=== PATIENT | female | born 1930 | race Hispanic/Latino ===

== ENCOUNTER 2018-01-17 11:17 | Inpatient (IN) | payer MEDICARE ==
--- NOTE | 2018-01-17 12:46 | ED PDOC ---
Arrival/HPI - General Chief Complaint: Trauma Time Seen by Provider: 01/17/18 12:11 Historian: Patient - History of Present Illness Narrative History of Present Illness (Text): 01/17/18 12:24 A 87 year old female, whose past medical history includes Parkinson's disease ( with cognitive function), and breast and ovarian CA (bilateral mastectomy), presents to the emergency department complaining of pain s/p falling 3 times for the past week. Patient reports .1st fall was witnessed and slipped due to festinating gait. Complaining of left shoulder pain, left humerus pain, and bruising to sternal area; however no head trauma or LOC. 2nd fall, patient was unable to grab railing to stop fall. 3rd fall was unwitnessed and continues to deny head trauma or inability to ambulate. PMD: Dr. Gfity Helm Past Medical History - Provider Review Nursing Documentation Reviewed: Yes - Neurological Hx Parkinson's Disease: Yes - Musculoskeletal/Rheumatological Hx Falls: No - Genitourinary/Gynecological Hx Ovarian Cancer: Yes Other/Comment: Breast CA. "oral" CA - Psychiatric Hx Depression: No Hx Emotional Abuse: No Hx Physical Abuse: No Hx Substance Use: No - Surgical History Hx Mastectomy: Yes (BILAT) - Anesthesia Hx Anesthesia: Yes Hx Anesthesia Reactions: No Hx Malignant Hyperthermia: No - Suicidal Assessment Feels Threatened In Home Enviroment: No Family/Social History - Physician Review Nursing Documentation Reviewed: Yes Family/Social History: No Known Family HX Smoking Status: Never Smoked Hx Alcohol Use: No Hx Substance Use: No Allergies/Home Meds Allergies/Adverse Reactions: Allergies No Known Allergies Allergy (Verified 01/23/13 13:15) Home Medications: Home Meds Medication Instructions Recorded Confirmed Carbidopa/Levodopa 50/200 CR 1 tab PO BID 01/17/18 01/17/18 [Sinemet CR] Entacapone [Comtan] 1 tab PO BID 01/17/18 01/17/18 Escitalopram [Lexapro] 10 mg PO DAILY 01/17/18 01/17/18 rOPINIRole [Requip] 2 mg pe PO DAILY 01/17/18 01/17/18 Review of Systems - Physician Review All systems were reviewed & negative as marked: Yes - Review of Systems Constitutional: absent: Other (denies any head trauma or inability to ambulate) Musculoskeletal: Other (left shoulder pain, left humerus pain, bruising to sternal area (s/p falls x 3)) Neurological: absent: Other (no LOC) Physical Exam Vital Signs Reviewed: Yes Vital Signs Temp Pulse Resp BP Pulse Ox 01/17/18 14:40 84 16 187/74 H 98 01/17/18 11:33 98.1 F 80 16 145/78 100 Temperature: Afebrile Blood Pressure: Normal Pulse: Regular Respiratory Rate: Tachypneic Appearance: Positive for: Well-Appearing Pain Distress: None Mental Status: Positive for: Alert and Oriented X 3 - Systems Exam Head: Present: Normocephalic Mouth: Present: Dry Respiratory/Chest: Present: Clear to Auscultation, Good Air Exchange, Other ( echomotic nicholas from past bilateral mastectomy). No: Respiratory Distress, Accessory Muscle Use Cardiovascular: Present: Regular Rate and Rhythm, Normal S1, S2. No: Murmurs Abdomen: No: Tenderness, Distention, Peritoneal Signs Upper Extremity: Present: Normal ROM (full ROM to elbow, however limited ROM to shoulder), Tenderness (left shoulder tendereness anterior laterally; humerus echymotic tenderness) Lower Extremity: Present: Normal Inspection. No: Edema Skin: Present: Warm, Dry, Normal Color. No: Rashes Psychiatric: Present: Alert, Oriented x 3, Normal Insight, Normal Concentration Medical Decision Making ED Course and Treatment: 01/17/18 12:28 Impression: 87 year old female with pain s/p falls x 3. Physical exam shows patient is slightly tachypneic; dry mucous membranes, has echomotic nicholas from past bilateral mastectomy; left shoulder tenderness anterior laterally; humerus echymotic tenderness; full ROM to elbow, however limited ROM to shoulder. Plan: -- EKG -- Head CT -- Chest CT -- left humerus X-Ray -- Right Knee X-Ray -- Pelvis X-Ray -- Left Shoulder X-Ray -- Labs -- Urinalysis -- Blood Cutlure -- Urine Culture -- Tylenol -- Venous Blood Gas -- Reassess and disposition Progress Notes: 01/17/2018 13:[address] IMPRESSION: No acute findings. Dictator: Juan Wills MD 01/17/2018 13:[address] IMPRESSION: No acute findings. No evidence of rib fracture or pneumothorax. Dictator: Juan Wills MD 01/17/2018 14:07 Knee X-Ray IMPRESSION: Normal radiographs of the right knee. Dictator: Juan Wills MD 01/17/2018 14:09 Pelvis X-Ray IMPRESSION: Unremarkable radiographs of pelvis. Dictator: Juan Wills MD 01/17/2018 14:11 Humerus X-Ray IMPRESSION: Minimally displaced fractire of the humeral neck. Dictator: Juan Wills MD 01/17/2018 14:12 Shoulder X-Ray IMPRESSION: Minimally displaced impacted fracture of the humeral neck. Dictator: Juan Wills MD 01/17/18 16:29 case discussed with pmd about presentation and lab resultation. consults being called as of this note's writing. Pt will need admiossno fro anemia w/u, left humeral fracture , repeated syncopes - Lab Interpretations Lab Results: 01/17/18 12:50 01/17/18 12:50 Lab Results 01/17/18 15:50: Blood Type Pending, Antibody Screen Pending, BBK History Checked No verified bt 01/17/18 14:20: Urine Color Dark yellow, Urine Appearance Clear, Urine pH 6.5, Ur Specific [place] 1.015, Urine Protein Negative, Urine Glucose (UA) Negative, Urine Ketones Negative, Urine Blood Negative, Urine Nitrate Negative, Urine Bilirubin Negative, Urine Urobilinogen 1.0 H, Ur Leukocyte Esterase Negative 01/17/18 12:50: Blood Type Cancelled, Antibody Screen Cancelled, BBK History Checked Cancelled 01/17/18 12:50: Sodium 146, Chloride 108 H, Potassium 3.9, Carbon Dioxide 26, Anion Gap 16, BUN 21, Creatinine 0.8, Est GFR ( Amer) > 60, Est GFR (Non- Af Amer) > 60, Random Glucose 84, Calcium 9.1, Total Bilirubin 0.9, AST 12 L, ALT 9, Alkaline Phosphatase 116, Lactate Dehydrogenase 624, Total Creatine Kinase 47, Troponin I < 0.01, Total Protein 6.3, Albumin 3.8, Globulin 2.5, Albumin/Globulin Ratio 1.5 01/17/18 12:50: pO2 44, VBG pH 7.39, VBG pCO2 47.0, VBG HCO3 28.5 H, VBG Total CO2 29.9 H, VBG O2 Sat (Calc) 83.0 H, VBG Base Excess 2.8 H, VBG Potassium 4.6, Sodium 142.0, Chloride 112.0 H, Glucose 84, Lactate 2.0, FiO2 21.0, Venous Blood Potassium 4.6 01/17/18 12:50: PT 11.4, INR 0.99, APTT 28.6 01/17/18 12:50: WBC 4.7, RBC 3.53, Hgb 9.6 L, Hct 29.7 L, MCV 84.1, MCH 27.2, MCHC 32.3, RDW 15.4 H, Plt Count 273, MPV 8.9, Gran % 61.8, Lymph % (Auto) 25.4 , [place] % (Auto) 10.0 H, Eos % (Auto) 2.4, Baso % (Auto) 0.4, Gran # 2.89, Lymph # (Auto) 1.2, [place] # (Auto) 0.5, Eos # (Auto) 0.1, Baso # (Auto) 0.02 I have reviewed the lab results: Yes - RAD Interpretation Radiology Orders: 01/17/18 12:14 CHEST W/O CONTRAST [CT] Stat 01/17/18 12:16 HUMERUS LEFT [RAD] Stat SHOULDER LEFT [RAD] Stat 01/17/18 12:17 HEAD W/O CONTRAST [CT] Stat PELVIS ONE VIEW [RAD] Stat 01/17/18 12:18 KNEE RIGHT 2 VIEWS (AP & LAT) [RAD] Stat - Medication Orders Current Medication Orders: Discontinued Medications Acetaminophen (Tylenol 325mg Tab) 650 mg PO STAT STA Stop: 01/17/18 12:15 Last Admin: 01/17/18 14:37 Dose: 650 mg MAR Pain/Vitals Document 01/17/18 14:37 EQ (Rec: 01/17/18 14:37 EQ [id number]) Pain Reassessment Is This A Pain ReAssessment? No Sleep Is patient sleeping during reassessment? No Presence of Pain Presence of Pain Yes Pain Scale Used Pain Scale Used Numeric - Scribe Statement The provider has reviewed the documentation as recorded by the Sharron Pierre Provider Scribe Attestation: All medical record entries made by the Scribe were at my direction and personally dictated by me. I have reviewed the chart and agree that the record accurately reflects my personal performance of the history, physical exam, medical decision making, and the department course for this patient. I have also personally directed, reviewed, and agree with the discharge instructions and disposition. Disposition/Present on Arrival - Present on Arrival Any Indicators Present on Arrival: No History of DVT/PE: No History of Uncontrolled Diabetes: No Urinary Catheter: No History of Decub. Ulcer: No History Surgical Site Infection Following: None - Disposition Have Diagnosis and Disposition been Completed?: Yes Diagnosis: Anemia, Humeral surgical neck fracture, Syncope and collapse Disposition: HOSPITALIZED Disposition Time: 16:31 Patient Plan: Admission, Telemetry Condition: GUARDED Discharge Instructions (ExitCare): Syncope (ED) Referrals: Gifty Helm MD [Primary Care Provider] - Follow up with primary Forms: Jeeran (Italian)
[2018-01-17 13:08] LABS: BASO # 0.02 K/mm3 (0.0-2.0); BASO % 0.4 % (0.0-3.0); EOS # 0.1 (0.0-0.7); EOS % 2.4 % (1.5-5.0); GRAN # 2.89 (1.4-6.5); GRAN % 61.8 % (50.0-68.0); HEMOGLOBIN 9.6 g/dL (12.0-16.0); LYMPH # 1.2 (1.2-3.4); LYMPH % 25.4 % (22.0-35.0); MEAN CELL VOLUME 84.1 fl (80.0-105.0); MEAN CORPUSCULAR HEMOGLOBIN 27.2 pg (25.0-35.0); MEAN CORPUSCULAR HGB CONC 32.3 g/dl (31.0-37.0); MEAN PLATELET VOLUME 8.9 fl (7.0-11.0); MONO # 0.5 (0.1-0.6); RBC 3.53 10^6/uL (3.5-6.1); RED CELL DISTRIBUTION WIDTH 15.4 % (11.5-14.5); VENOUS BLOOD GAS BASE EXCESS 2.8 mmol/L (0.0-2.0); VENOUS BLOOD GAS PO2 44 mm/Hg (30-55); VENOUS BLOOD PH 7.39 (7.32-7.43); WHITE BLOOD COUNT 4.7 10^3/ul (4.5-11.0)
[2018-01-17 13:18] LABS: INR 0.99 (0.93-1.08); PARTIAL THROMBOPLASTIN TIME 28.6 Seconds (25.1-36.5); PROTHROMBIN TIME 11.4 SECONDS (9.4-12.5)
[2018-01-17 13:23] LABS: ALB/GLOB RATIO 1.5 (1.1-1.8); ALBUMIN 3.8 g/dL (3.0-4.8); ALT/SGPT 9 U/L (7-56); AST/SGOT 12 U/L (14-36); BLOOD UREA NITROGEN 21 mg/dL (7-21); CALCIUM 9.1 mg/dL (8.4-10.5); GFR AFRICAN-AMERICAN > 60; GFR NON-AFRICAN AMERICAN > 60
[2018-01-17 13:34] LABS: TROPONIN I < 0.01 ng/mL
--- NOTE | 2018-01-17 13:41 | CT ---
PROCEDURE: CT HEAD WITHOUT CONTRAST. HISTORY: fall COMPARISON: 01/25/2013 TECHNIQUE: Axial computed tomography images were obtained through the head/brain without intravenous contrast. Radiation dose: Total exam DLP = 979 mGy-cm. This CT exam was performed using one or more of the following dose reduction techniques: Automated exposure control, adjustment of the mA and/or kV according to patient size, and/or use of iterative reconstruction technique. FINDINGS: HEMORRHAGE: No intracranial hemorrhage. BRAIN: No mass effect or edema. No atrophy or chronic microvascular ischemic changes. VENTRICLES: Unremarkable. No hydrocephalus. CALVARIUM: Unremarkable. PARANASAL SINUSES: Unremarkable as visualized. No significant inflammatory changes. MASTOID AIR CELLS: Unremarkable as visualized. No inflammatory changes. OTHER FINDINGS: None. IMPRESSION: No acute findings
--- NOTE | 2018-01-17 13:46 | CT ---
PROCEDURE: CT Chest without contrast HISTORY: fall COMPARISON: None. TECHNIQUE: Contiguous axial images were obtained through the chest without intravenous contrast enhancement. Sagittal and coronal reconstructions were performed. Radiation dose (DLP): 552 mGy-cm. This CT exam was performed using one or more of the following dose reduction techniques: Automated exposure control, adjustment of the mA and/or kV according to patient size, and/or use of iterative reconstruction technique. FINDINGS: LUNGS: Clear lungs. Visualized airway clear. MEDIASTINUM: Unremarkable thoracic aorta. No aneurysm. Normal sized heart. Main pulmonary artery unremarkable. No vascular congestion. No lymphadenopathy. PLEURA: No pleural fluid. No pneumothorax. BONES: No fracture. No destructive lesion. UPPER ABDOMEN: Grossly unremarkable. OTHER FINDINGS: None. IMPRESSION: No acute findings. No evidence of rib fracture or pneumothorax
--- NOTE | 2018-01-17 14:09 | RAD ---
PROCEDURE: Right Knee Radiographs. HISTORY: fall COMPARISON: None. FINDINGS: BONES: Normal. No fracture. JOINTS: Normal. No osteoarthritis. JOINT EFFUSION: None. OTHER FINDINGS: None. IMPRESSION: Normal radiographs of the right knee.
--- NOTE | 2018-01-17 14:11 | RAD ---
PROCEDURE: Radiographs of the pelvis. HISTORY: fall COMPARISON: None. FINDINGS: BONES: Pelvic Bones: Unremarkable. Hips: Grossly unremarkable. JOINTS: Sacroiliac Joints: Unremarkable. Pubic Symphysis: Unremarkable. OTHER FINDINGS: None. IMPRESSION: Unremarkable radiographs of the pelvis.
--- NOTE | 2018-01-17 14:12 | RAD ---
PROCEDURE: Radiographs of the left humerus. HISTORY: fall COMPARISON: None. FINDINGS: BONES: There is a minimally displaced fracture of the humeral neck. SOFT TISSUES: Normal. OTHER FINDINGS: None. IMPRESSION: Minimally displaced fracture of the humeral neck
--- NOTE | 2018-01-17 14:14 | RAD ---
PROCEDURE: Radiographs of the Left Shoulder HISTORY: fall COMPARISON: No prior. FINDINGS: BONES: Minimally displaced impacted fracture of the humeral neck JOINTS: Normal. Glenohumeral and acromioclavicular joints preserved. No osteoarthritis. SOFT TISSUES: Normal. OTHER FINDINGS: None. IMPRESSION: Minimally displaced impacted fracture of the humeral neck
[2018-01-17 14:42] LABS: PH,URINE 6.5 (4.7-8.0); URINE BILIRUBIN NEGATIVE (NEGATIVE); URINE BLOOD NEGATIVE (NEGATIVE); URINE GLUCOSE (UA) NEGATIVE (NEGATIVE); URINE LEUKOCYTE ESTERASE NEGATIVE Leu/uL (NEGATIVE); URINE PROTEIN NEGATIVE mg/dL (<30 mg/dL)
[2018-01-17 14:47] LABS: URINE APPEARANCE CLEAR (CLEAR); URINE COLOR DARK YELLOW (YELLOW)
[2018-01-17 16:33] LABS: VENOUS BLOOD GAS BASE EXCESS 2.7 mmol/L (0.0-2.0); VENOUS BLOOD GAS PO2 89 mm/Hg (30-55); VENOUS BLOOD PH 7.41 (7.32-7.43)
--- NOTE | 2018-01-17 20:10 | CARD ---
APPROVED REPORT EKG Measurement Heart [id number] MN [id number] [id number] <Conclusion> Normal sinus rhythm Inferior infarct, age undetermined Possible Anterior infarct, age undetermined Abnormal ECG
--- NOTE | 2018-01-17 22:45 | CP.PCM.PN ---
Subjective - Date & Time of Evaluation Date of Evaluation: 01/17/18 Time of Evaluation: 22:44 - Subjective Subjective: Patient was seen at bedside. She complained of pain in left shoulder and upper arm. Has no other complaints. Denies chest pain,sob, nausea, sweating ,palpitations. Medical record was reviewed. This 87 year old woman was admitted with left shoulder pain after she fell at home, left humeral fracture. Has PMH of depression, dementia, rectal bleeding, hystrectomy, breast surgery. Objective - Vital Signs/Intake and Output Vital Signs (last 24 hours): Temp Pulse Resp BP Pulse Ox 98.1 F 79 18 152/70 H 98 01/17/18 11:33 01/17/18 17:52 01/17/18 17:52 01/17/18 17:52 01/17/18 17:52 - Medications Medications: Current Medications Carbidopa/Levodopa (Sinemet Cr) 1 tab PO BID AFSANEH Escitalopram Oxalate (Lexapro) 10 mg PO DAILY AFSANEH Non-Formulary Medication (Entacapone [Comtan]) 1 tab PO BID AFSANEH Ropinirole HCl (Requip) 2 mg PO DAILY AFSANEH - Labs Labs: PT 11.4 SECONDS (9.4-12.5) 01/17/18 12:50 INR 0.99 (0.93-1.08) 01/17/18 12:50 APTT 28.6 Seconds (25.1-36.5) 01/17/18 12:50 - Constitutional Appears: Well, No Acute Distress - Head Exam Head Exam: ATRAUMATIC, NORMAL INSPECTION, NORMOCEPHALIC - Eye Exam Eye Exam: Normal appearance - ENT Exam ENT Exam: Normal External Ear Exam - Neck Exam Neck Exam: Normal Inspection - Respiratory Exam Respiratory Exam: NORMAL BREATHING PATTERN - Cardiovascular Exam Cardiovascular Exam: absent: JVD - GI/Abdominal Exam GI & Abdominal Exam: absent: Distended - Rectal Exam Rectal Exam: Deferred - Extremities Exam Additional comments: Left shoulder ROM diminished. Tenderness + - Back Exam Back Exam: NORMAL INSPECTION - Neurological Exam Neurological Exam: Alert, Oriented x3 - Psychiatric Exam Psychiatric exam: Normal Affect, Normal Mood - Skin Skin Exam: Normal Color Assessment and Plan - Assessment and Plan (Free Text) Assessment: Left shoulder/upper arm pain. Left humeral neck fracture. Dementia. Depression. Anemia.
[2018-01-17 23:10] VITALS: BMI 24.5
[2018-01-17] MEDS ORDERED: Pneumococcal 23-Valent Vaccine IM ONE (23:10)
[2018-01-18 07:52] LABS: BASO # 0.01 K/mm3 (0.0-2.0); BASO % 0.3 % (0.0-3.0); EOS # 0.2 (0.0-0.7); GRAN # 2.34 (1.4-6.5); GRAN % 61.6 % (50.0-68.0); HEMOGLOBIN 9.5 g/dL (12.0-16.0); LYMPH % 25.5 % (22.0-35.0); MEAN CELL VOLUME 84.1 fl (80.0-105.0); MEAN CORPUSCULAR HEMOGLOBIN 26.5 pg (25.0-35.0); MEAN CORPUSCULAR HGB CONC 31.6 g/dl (31.0-37.0); MEAN PLATELET VOLUME 8.7 fl (7.0-11.0); MONO # 0.3 (0.1-0.6); MONO % 7.6 % (1.0-6.0); RBC 3.58 10^6/uL (3.5-6.1); RED CELL DISTRIBUTION WIDTH 15.3 % (11.5-14.5); WHITE BLOOD COUNT 3.8 10^3/ul (4.5-11.0)
[2018-01-18 07:57] LABS: BLOOD UREA NITROGEN 19 mg/dL (7-21); CALCIUM 8.8 mg/dL (8.4-10.5); GFR AFRICAN-AMERICAN > 60; GFR NON-AFRICAN AMERICAN 59
--- NOTE | 2018-01-18 08:18 | HP ---
HISTORY OF PRESENT ILLNESS: An 87-year-old female who was brought to [facility] by her daughter with a history of several falls at home. The patient had sustained some trauma to the left shoulder with a large ecchymotic area and she was referred in to the emergency room. PAST MEDICAL HISTORY: The patient has a past medical history of rectal bleeding, dementia with parkinsonian components, breast surgery history, hysterectomy and depression. SOCIAL HISTORY: She has a social history of nonsmoker, nondrinker, nondrug user. ALLERGIES: THERE ARE NO KNOWN ALLERGIES. HOME MEDICATIONS: Consists of Comtan 1 tab b.i.d., carbidopa and levodopa 52,000 b.i.d., Requip 2 mg daily and Lexapro 10 mg daily. REVIEW OF SYSTEMS: Ten systems are reviewed. Pertinent findings as stated. VITAL SIGNS: Show a temp of 98, the blood pressure is 145/78, respiratory rate is 16, oxygen sat is 98% on room air, LABORATORY DATA: Shows the urine was clear. Chemistry shows electrolytes 130 and 146, potassium 4.9, chloride 108. The BUN is 21, the creatinine is 0.8, AST is 12. Troponin is less than 0.01. Albumin is 3.8. Glucose is 84. Her coags, her PT is 11.4 with an INR of 0.999, the PTT is 28.6. CBC shows a white count of 4.7, RBC 3.5, hemoglobin 9.6, hematocrit 29.7, platelet count 273. The patient is reported to have had the CAT scan of the head, which showed no acute findings as did a CT of the chest. She has an impacted fracture of the left humerus with a large ecchymotic area. X-rays of the knee and pelvic area are reported as showing no acute findings. She had an EKG, which is reported as showing a sinus rhythm, infarct age undetermined, possible anterior infarct age undetermined. 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 It has been advised that the patient be admitted for monitoring with neurological and orthopedic evaluation. Also, because of the risk of fall and her underlying cognitive disorder, I requested and made the patient to be on a one-to-one. We will get a Neurology and Orthopedic consult as well as a Gastroenterology consult and follow up her labs. Gifty Helm MD
[2018-01-18] MEDS ORDERED: Potassium Chloride 20 mEq ER Tab PO ONE (08:55)
--- NOTE | 2018-01-18 09:26 | PN ---
DATE: 01/18/2018 SUBJECTIVE: The patient is comfortable this morning, was seen by Dr. Eaton. PHYSICAL EXAMINATION: VITAL SIGNS: She has a temp of 98, her blood pressure is 134/64, respiratory rate is 20, percent saturation on room air is 97%, pulse is 74. Monitor is reporting a sinus rhythm. GENERAL: She is alert and oriented x2. LUNGS: Clear. HEART: S1 and S2 rhythm. ABDOMEN: Soft with positive bowel sounds. ASSESSMENT AND PLAN: There is a large area of ecchymosis over the left shoulder where the patient has sustained a fall. Orthopedics has been in to see the patient and has requested a CT of that area. During the evening hours, she was seen by the house physician for pain medication. She is comfortable this morning. Laboratory data shows a sodium of 145, potassium 3.3, chloride 108, BUN of 19, creatinine is 0.9. CBC shows a WBC of 3.8, RBC of 3.58, hemoglobin 9.5, hematocrit 30.1, platelet count is 265. Consult has been requested for Physical Therapy and Neurology. She is a patient with cognitive behavior disorder and parkinsonian symptomatology, on Parkinson's medications. Her medications have been clarified after discussion with the family and adjustments are currently being made. We will check her iron studies, replete her potassium, check her magnesium levels. Her stool guaiac in the emergency room was reported as being negative. Gifty Helm MD
[2018-01-18 09:34] LABS: IRON 40 ug/dL (45-180)
[2018-01-18 09:44] LABS: % IRON SATURATION 13 % (20-55); TOTAL IRON BINDING CAPACITY 311 ug/dL (265-497)
--- NOTE | 2018-01-18 10:06 | CT ---
PROCEDURE: CT of the left shoulder without contrast HISTORY: ltshoulder pain COMPARISON: Plain films 01/17/2018 TECHNIQUE: Radiation dose: Total exam DLP = 389 mGy-cm. This CT exam was performed using one or more of the following dose reduction techniques: Automated exposure control, adjustment of the mA and/or kV according to patient size, and/or use of iterative reconstruction technique. FINDINGS: As noted on the plain films there is a minimally displaced impacted fracture of the left humeral neck. The articular surface of the humeral head is intact. The bony glenoid is intact. The clavicle and the acromioclavicular joint are unremarkable. There is an old fracture deformity of the scapula which has a wavy contour. There is no evidence of acute fracture IMPRESSION: Minimally displaced impacted fracture of the left humeral neck
[2018-01-18] MEDS: Carbidopa/Levodopa 25/100 CR PO SCH ×2 (10:27→17:18)
[2018-01-18] MEDS: ENTACAPONE 200 MG PO SCH ×2 (10:27→17:18)
--- NOTE | 2018-01-18 15:35 | CP.PCM.CON ---
History of Present Illness - History of Present Illness History of Present Illness: Seen and examined earlier this morning, chart reviewed. Request for GI consult is for anemia HPI: This is an 87-year-old female with a past medical history of dementia with parkinsonian cc, depression brought to the emergency room with history of falls at home. The patient is currently seen at the bedside on one-to-one. Patient is a poor historian. Patient is reported to be confused at times. Patient history obtained from medical staff and chart. Patient reported to have had a fall at home and sustained trauma to her left shoulder has a large ecchymotic area. She currently has a left arm sling. Patient denies nausea, vomiting, or abdominal pain. No complaints of any constipation or diarrhea. Patient reports regular bowel movements, not aware of any melena or bright red blood per rectum. Does report history of hemorrhoids. No complaints of any weight loss, loss of appetite or dysphagia. on admission patient had CT scan of the head which was negative for any infarct or bleed. CT scan of the chest was also done which was negative for acute findings. This morning patient went for a CT scan of upper left extremity and this showed a displaced impacted fracture of the left humeral neck. Past medical history: History of rectal bleeding, dementia with Parkinson disease, depression Past surgical history: Breast surgery, hysterectomy Allergies: No known drug allergies Family history: Noncontributory at this time Medications: Reviewed as per [facility] Social history: No history of smoking, EtOH or illicit drugs ROS: Systems review took positive finding see HPI Past Patient History - Past Social History Smoking Status: Former Smoker - CARDIAC Hx Cardiac Disorders: No - PULMONARY Hx Respiratory Disorders: Yes (used to smoke cigarettes quit.) - NEUROLOGICAL Hx Neurological Disorder: Yes Hx Parkinson's Disease: Yes - HEENT Hx HEENT Problems: Yes (had oral sx) - RENAL Hx Chronic Kidney Disease: No - ENDOCRINE/METABOLIC Hx Endocrine Disorders: No - HEMATOLOGICAL/ONCOLOGICAL Hx Blood Disorders: Yes Hx Cancer: Yes (breast/ovarian ca.) - INTEGUMENTARY Hx Dermatological Problems: No - MUSCULOSKELETAL/RHEUMATOLOGICAL Hx Musculoskeletal Disorders: No Hx Falls: Yes (3 x this week.) - GASTROINTESTINAL Hx Gastrointestinal Disorders: No - GENITOURINARY/GYNECOLOGICAL Hx Genitourinary Disorders: Yes Other/Comment: Breast CA. "oral" CA - PSYCHIATRIC Hx Psychophysiologic Disorder: No Hx Depression: No Hx Emotional Abuse: No Hx Physical Abuse: No Hx Substance Use: No - SURGICAL HISTORY Hx Surgeries: Yes (oral sx) Hx Mastectomy: Yes (BILAT) - ANESTHESIA Hx Anesthesia: Yes Hx Anesthesia Reactions: No Hx Malignant Hyperthermia: No Meds Allergies/Adverse Reactions: Allergies Allergy/AdvReac Type Severity Reaction Status Date / Time No Known Allergies Allergy Verified 01/17/18 20:30 - Medications Medications: Current Medications Carbidopa/Levodopa (Sinemet Cr) 1 tab PO [facility] Carbidopa/Levodopa (Sinemet Cr) 1 tab PO BID [facility] Last Admin: 01/18/18 10:27 Dose: 1 tab Escitalopram Oxalate (Lexapro) 10 mg PO DAILY [facility] Last Admin: 01/18/18 10:27 Dose: 10 mg Home Med (Home Med) 0 unit PO BID [facility] Last Admin: 01/18/18 10:27 Dose: 1 unit Ropinirole HCl (Requip) 2 mg PO DAILY [facility] Last Admin: 01/18/18 10:27 Dose: 2 mg Physical Exam - Constitutional Appears: No Acute Distress - Head Exam Head Exam: NORMOCEPHALIC - Eye Exam Eye Exam: Normal appearance. absent: Scleral icterus - ENT Exam ENT Exam: Mucous Membranes Moist - Neck Exam Neck exam: Positive for: Normal Inspection - Respiratory Exam Respiratory Exam: Rhonchi, NORMAL BREATHING PATTERN. absent: Respiratory Distress - Cardiovascular Exam Cardiovascular Exam: +S1, +S2 - GI/Abdominal Exam GI & Abdominal Exam: Normal Bowel Sounds, Soft. absent: Distended, Guarding, Organomegaly, Rebound, Tenderness Additional comments: sternum w/ ecchymosis - Extremities Exam Extremities exam: Positive for: pedal pulses present. Negative for: calf tenderness, pedal edema - Neurological Exam Neurological exam: Alert, Altered (periods of confusion), Oriented x3 - Skin Skin Exam: Dry, Warm Results - Vital Signs Recent Vital Signs: Last Vital Signs Temp 98.0 F 01/18/18 06:00 Pulse 73 01/18/18 06:00 Resp 20 01/18/18 06:00 BP 157/85 H 01/18/18 06:00 Pulse Ox 97 01/18/18 06:00 - Labs Result Diagrams: 01/18/18 07:00 01/18/18 07:00 Labs: Laboratory Results - last 24 hr 01/18/18 01/18/18 01/18/18 07:00 07:00 07:00 WBC 3.8 L RBC 3.58 Hgb 9.5 L Hct 30.1 L MCV 84.1 MCH 26.5 MCHC 31.6 RDW 15.3 H Plt Count 265 MPV 8.7 Gran % 61.6 Lymph % (Auto) 25.5 [place] % (Auto) 7.6 H Eos % (Auto) 5.0 Baso % (Auto) 0.3 Gran # 2.34 Lymph # (Auto) 1.0 L [place] # (Auto) 0.3 Eos # (Auto) 0.2 Baso # (Auto) 0.01 Retic Count Sodium 145 Potassium 3.3 L Chloride 108 H Carbon Dioxide 29 Anion Gap 12 BUN 19 Creatinine 0.9 Est GFR ( Amer) > 60 Est GFR (Non-Af Amer) 59 Random Glucose 90 Calcium 8.8 Magnesium 2.0 Iron TIBC % Saturation 01/18/18 01/18/18 07:00 09:20 WBC RBC Hgb Hct MCV MCH MCHC RDW Plt Count MPV Gran % Lymph % (Auto) [place] % (Auto) Eos % (Auto) Baso % (Auto) Gran # Lymph # (Auto) [place] # (Auto) Eos # (Auto) Baso # (Auto) Retic Count 2.66 H Sodium Potassium Chloride Carbon Dioxide Anion Gap BUN Creatinine Est GFR ( Amer) Est GFR (Non-Af Amer) Random Glucose Calcium Magnesium Iron 40 L TIBC 311 % Saturation 13 L Assessment & Plan - Assessment and Plan (Free Text) Assessment: Assessment: status post fall, left shoulder fracture Anemia, differentials to consider hemolysis, elevated retic count, s/p fall, ecchymosis/hematoma History of dementia with Parkinson's History of depression Plan: Follow-up iron studies, ferritin, B12 Diet as tolerated Continue GI prophylaxis request direct bilirubin monitor H/H and overt GIB Thank you for this consult and for allowing us to participate in your patient care, further recomendation based upon clinical course. Seen and discussed w/ Dr. Spain.
--- NOTE | 2018-01-18 18:52 | CON ---
DATE: 01/18/2018 NEUROLOGY CONSULT CHIEF COMPLAINT: Falls and Parkinson's disease. HISTORY OF PRESENT ILLNESS: This is an 87-year-old woman with past medical history of dementia-related Parkinson's with history of Parkinson's disease, who is on Sinemet and Stalevo by Dr. Wood, who has been having multiple falls at home and the patient had a fall and sustained trauma in her left shoulder and which is large and ecchymotic and developed a nondisplaced fracture of the left humeral neck. She is also found to have a low B12 level of 203 and she will be having B12 supplementation. She does have evidence of parkinsonism on neurological examination. She does have cognitive impairment from underlying Parkinson's disease and is alert and oriented to person and place, not much in month or year. Recall after 5 minutes is 0/3. Poor attention plan and slow thought process. Moves all extremities equally. CAT scan of the head was negative for any acute intracranial abnormality. She had been seen by GI for some underlying anemia. REVIEW OF SYSTEMS: Fourteen-point review of systems negative except as per the HPI. ALLERGIES: NO KNOWN DRUG ALLERGIES. PAST MEDICAL HISTORY: History of Parkinson's disease, history of breast surgery, history of depression and anxiety, hysterectomy. SOCIAL HISTORY: No illicit drug use, smoking or EtOH abuse. HOME MEDICATIONS: Reviewed by nurses' reconciliation sheet. PHYSICAL EXAMINATION: VITAL SIGNS: Temperature 97.8, pulse rate of 70, blood pressure 134/64, respiratory rate of 18, oxygen saturation 97% by room air. GENERAL: The patient is sitting up in bed, in no acute distress. HEENT: Atraumatic, normocephalic. PERRLA. Extraocular muscles intact. NECK: Supple. No JVD. No adenopathy noted. LUNGS: Clear to auscultation. No adventitious sounds. HEART: S1, S2. Normal rate and rhythm. No murmurs, rubs or gallops. ABDOMEN: Soft, nontender and nondistended. Bowel sounds are present. EXTREMITIES: No clubbing. No cyanosis. Peripheral pulses are 2+ felt bilaterally. NEUROLOGIC: The patient is alert and oriented to person and place, not much of year. Recall after 5 minutes is 0/3. Poor attention span and slow thought process. Disorganized thoughts. Cranial nerves II through XII are intact. Motor exam: Moves all extremities equally. Mild subtle resting tremors in both hands on rest. Tone is slightly increased throughout and has mild cognitive rigidity at the wrist bilaterally. Sensory exam: Light touch, pinprick, proprioception and vibration are intact. DTRs are 1+ throughout. Coordination: [id number] is intact. Gait is deferred for now. LABORATORY DATA: Sodium is 145, potassium 3.2, chloride of 108, carbon dioxide of 29, BUN of 19, creatinine of 0.9, random glucose of 90. Iron level is 40, which is low; percent saturation is 13. B12 level is 203, which is low. ASSESSMENT AND PLAN: This is an 87-year-old woman with history of hypertension with history of depression and Parkinson's disease with underlying dementia related to the Parkinson's, who is having multiple falls, which resulted in a fall at home and now fractured her nondisplaced left humeral neck fracture and is very deconditioned. Also, found to have low B12 level and iron-deficiency anemia, which Gastroenterology has been working up. At this time, she sees Dr. Wood, who has her on various medications, a very odd combination of Sinemet CR and Requip and on top of that entacapone, which is her home medication that she takes. At this time, we will recommend, 1. Replace the B12 levels, which is low. 2. Continue with her underlying Parkinson's medications that she takes by her Neurologist, Dr. Wood and follow the exact timing that she takes it and can follow him as an outpatient in regards to further management of underlying Parkinson's medications and I will not intervene with her underlying medication adjustments since this is not a good idea in the hospital. 3. Physical therapy/occupational therapy for physical and occupational therapy and could recommend possibly some subacute rehab for underlying deconditioned state. 4. Avoid tramadol in this case and she is on Parkinson's meds and I will recommend at least a Tylenol or naproxen for p.r.n. acute onset of pain. At this time, continue current present medical management. Thank you for this consult. Nahun Smart MD [facility] # [id number]
--- NOTE | 2018-01-18 19:31 | CON ---
DATE: 01/18/2018 ORTHOPEDIC CONSULTATION The patient is in the hospital in room 277, bed 1 complaining of shoulder pain she felt several times in last week or so, who lives at home with her daughter, but she is a little confused. Does not know really what happened. The x-rays show a subtle irregularity of the left shoulder interpreted as a fracture on the x-ray done on 01/17 , minimally displaced impacted fracture at the neck of the humerus. CAT scan to see if there is any other subtle injury to that left shoulder. In the meantime, we will keep her in a sling and can get up out of bed with help and to not put weight on the left shoulder and just stay in the sling for 4 to 6 weeks. FINAL DIAGNOSIS: Impacted fracture, left proximal humerus, to wear a sling for 4 to 6 weeks and can get up out of bed without weight on that left shoulder. Juan Eaton DO
[2018-01-18] MEDS: Carbidopa/Levodopa 50/200 CR PO SCH (21:00)
--- NOTE | 2018-01-18 23:24 | PN ---
DATE: 01/18/2018 SUBJECTIVE: Patient is currently comfortable. She is on her way to CAT scan. PHYSICAL EXAMINATION: VITAL SIGNS: Temp is 98, blood pressure is 134/64, respiratory rate is 18, pulse is 70 and regular. LUNGS: Clear. HEART: In S1 and S2 rhythm. ABDOMEN: Soft with positive bowel sounds. EXTREMITIES: Show ecchymosis over the left shoulder. LABORATORY DATA: A CAT scan of the shoulder is showing the minimally displaced fracture of the left humerus and an old clavicle fracture. PLAN: She has low iron stores and is awaiting a GI evaluation. She has been seen by Neurology with repletion recommendations of her B12 level and follow up with her and continue her Parkinson medications. Gifty Helm MD
[2018-01-19 07:07] LABS: BASO # 0.01 K/mm3 (0.0-2.0); BASO % 0.2 % (0.0-3.0); EOS # 0.1 (0.0-0.7); EOS % 2.9 % (1.5-5.0); GRAN # 2.75 (1.4-6.5); GRAN % 61.3 % (50.0-68.0); HEMOGLOBIN 9.8 g/dL (12.0-16.0); LYMPH # 1.2 (1.2-3.4); LYMPH % 27.6 % (22.0-35.0); MEAN CELL VOLUME 84.1 fl (80.0-105.0); MEAN CORPUSCULAR HEMOGLOBIN 26.5 pg (25.0-35.0); MEAN CORPUSCULAR HGB CONC 31.5 g/dl (31.0-37.0); MEAN PLATELET VOLUME 8.7 fl (7.0-11.0); MONO # 0.4 (0.1-0.6); RBC 3.7 10^6/uL (3.5-6.1); RED CELL DISTRIBUTION WIDTH 15.5 % (11.5-14.5); WHITE BLOOD COUNT 4.5 10^3/ul (4.5-11.0)
[2018-01-19 07:13] LABS: BLOOD UREA NITROGEN 22 mg/dL (7-21); CALCIUM 8.9 mg/dL (8.4-10.5); GFR AFRICAN-AMERICAN > 60; GFR NON-AFRICAN AMERICAN 59
[2018-01-19] MEDS: Carbidopa/Levodopa 25/100 CR PO SCH ×2 (10:56→17:28)
[2018-01-19] MEDS: ENTACAPONE 200 MG PO SCH ×2 (11:01→19:54)
[2018-01-19] MEDS ORDERED: Barium Sulfate Susp 2.1% w/v, 2.0% w/w 450 mL Bottle PO ONE (11:18)
--- NOTE | 2018-01-19 13:11 | CP.PCM.PN ---
Subjective - Date & Time of Evaluation Date of Evaluation: 01/19/18 Time of Evaluation: 09:00 - Subjective Subjective: DATE: 01/19/2018 NEUROLOGY FOLLOW UP CHIEF COMPLAINT: Falls and Parkinson's disease. Subjective: Patient was given 1000mcg b12 injection yesterday due to low b12 level.. Mild pain of the left shoulder. REVIEW OF SYSTEMS: Fourteen-point review of systems negative except as per the HPI. ALLERGIES: NO KNOWN DRUG ALLERGIES. PAST MEDICAL HISTORY: History of Parkinson's disease, history of breast surgery, history of depression and anxiety, hysterectomy. SOCIAL HISTORY: No illicit drug use, smoking or EtOH abuse. HOME MEDICATIONS: Reviewed by nurses' reconciliation sheet. PHYSICAL EXAMINATION: VITAL SIGNS: Reviewed GENERAL: The patient is sitting up in bed, in no acute distress. HEENT: Atraumatic, normocephalic. PERRLA. Extraocular muscles intact. NECK: Supple. No JVD. No adenopathy noted. LUNGS: Clear to auscultation. No adventitious sounds. HEART: S1, S2. Normal rate and rhythm. No murmurs, rubs or gallops. ABDOMEN: Soft, nontender and nondistended. Bowel sounds are present. EXTREMITIES: No clubbing. No cyanosis. Peripheral pulses are 2+ felt bilaterally. NEUROLOGIC: The patient is alert and oriented to person and place, not much of year. Recall after 5 minutes is 0/3. Poor attention span and slow thought process. Disorganized thoughts. Cranial nerves II through XII are intact. Motor exam: Moves all extremities equally. Mild subtle resting tremors in both hands on rest. Tone is slightly increased throughout and has mild cognitive rigidity at the wrist bilaterally. Sensory exam: Light touch, pinprick, proprioception and vibration are intact. DTRs are 1+ throughout. Coordination: [id number] is intact. Gait is deferred for now. LABORATORY DATA: Reviewed. ASSESSMENT AND PLAN: This is an 87-year-old woman with history of hypertension with history of depression and Parkinson's disease with underlying dementia related to the Parkinson's, who is having multiple falls, which resulted in a fall at home and now fractured her nondisplaced left humeral neck fracture and is very deconditioned. Also, found to have low B12 level and iron-deficiency anemia, which Gastroenterology has been working up. At this time, she sees Dr. Wood, who has her on various medications, a very odd combination of Sinemet CR and Requip and on top of that entacapone, which is her home medication that she takes. At this time, we will recommend, 1. 1000mcg po daily of b12 for b12 deficiency. 2. Continue with her underlying Parkinson's medications that she takes by her Neurologist, Dr. Wood and follow the exact timing that she takes it and can follow him as an outpatient in regards to further management of underlying Parkinson's medications and I will not intervene with her underlying medication adjustments since this is not a good idea in the hospital. 3. Physical therapy/occupational therapy for physical and occupational therapy and could recommend possibly some subacute rehab for underlying deconditioned state. 4.Continue current present medical management. Thank you Nahun Smart MD Objective - Vital Signs/Intake and Output Vital Signs (last 24 hours): Temp Pulse Resp BP Pulse Ox 97.4 F L 75 18 149/69 95 01/19/18 12:00 01/19/18 12:00 01/19/18 12:00 01/19/18 12:00 01/19/18 06:00 Intake and Output: 01/19/18 01/19/18 06:59 18:59 Intake Total 240 Output Total 200 Balance 40 - Medications Medications: Current Medications Acetaminophen (Tylenol 325mg Tab) 650 mg PO Q6H PRN PRN Reason: Pain, moderate (4-7) Last Admin: 01/19/18 03:48 Dose: 650 mg Carbidopa/Levodopa (Sinemet Cr) 1 tab PO HS [facility] Last Admin: 01/18/18 21:00 Dose: 1 tab Carbidopa/Levodopa (Sinemet Cr) 1 tab PO BID [facility] Last Admin: 01/19/18 10:56 Dose: 1 tab Escitalopram Oxalate (Lexapro) 10 mg PO DAILY [facility] Last Admin: 01/19/18 10:56 Dose: 10 mg Home Med (Home Med) 0 unit PO BID [facility] Last Admin: 01/19/18 11:01 Dose: 1 unit Ropinirole HCl (Requip) 2 mg PO DAILY [facility] Last Admin: 01/19/18 10:56 Dose: 2 mg - Labs Labs: 01/19/18 06:30 01/19/18 06:30 PT 11.4 SECONDS (9.4-12.5) 01/17/18 12:50 INR 0.99 (0.93-1.08) 01/17/18 12:50 APTT 28.6 Seconds (25.1-36.5) 01/17/18 12:50
--- NOTE | 2018-01-19 14:02 | CP.PCM.PN ---
Subjective - Date & Time of Evaluation Date of Evaluation: 01/19/18 Time of Evaluation: 10:10 - Subjective Subjective: Seen and examined at the bedside earlier today, chart review. Patient denies nausea, vomiting, or abdominal pain. The patient is awake alert but confused. No acute overnight events reported. Objective - Vital Signs/Intake and Output Vital Signs (last 24 hours): Temp Pulse Resp BP Pulse Ox 97.4 F L 75 18 149/69 95 01/19/18 12:00 01/19/18 12:00 01/19/18 12:00 01/19/18 12:00 01/19/18 06:00 Intake and Output: 01/19/18 01/19/18 06:59 18:59 Intake Total 240 Output Total 200 Balance 40 - Medications Medications: Current Medications Acetaminophen (Tylenol 325mg Tab) 650 mg PO Q6H PRN PRN Reason: Pain, moderate (4-7) Last Admin: 01/19/18 03:48 Dose: 650 mg Carbidopa/Levodopa (Sinemet Cr) 1 tab PO HS [facility] Last Admin: 01/18/18 21:00 Dose: 1 tab Carbidopa/Levodopa (Sinemet Cr) 1 tab PO BID [facility] Last Admin: 01/19/18 10:56 Dose: 1 tab Escitalopram Oxalate (Lexapro) 10 mg PO DAILY [facility] Last Admin: 01/19/18 10:56 Dose: 10 mg Home Med (Home Med) 0 unit PO BID [facility] Last Admin: 01/19/18 11:01 Dose: 1 unit Ropinirole HCl (Requip) 2 mg PO DAILY [facility] Last Admin: 01/19/18 10:56 Dose: 2 mg - Labs Labs: 01/19/18 06:30 01/19/18 06:30 PT 11.4 SECONDS (9.4-12.5) 01/17/18 12:50 INR 0.99 (0.93-1.08) 01/17/18 12:50 APTT 28.6 Seconds (25.1-36.5) 01/17/18 12:50 - Constitutional Appears: No Acute Distress - Head Exam Head Exam: NORMOCEPHALIC - Eye Exam Eye Exam: Normal appearance. absent: Scleral icterus - ENT Exam ENT Exam: Mucous Membranes Moist - Neck Exam Neck Exam: Normal Inspection - Respiratory Exam Respiratory Exam: NORMAL BREATHING PATTERN. absent: Respiratory Distress - Cardiovascular Exam Cardiovascular Exam: +S1, +S2 - GI/Abdominal Exam GI & Abdominal Exam: Soft, Normal Bowel Sounds. absent: Guarding, Rebound - Extremities Exam Extremities Exam: absent: Calf Tenderness, Pedal Edema - Neurological Exam Neurological Exam: Alert, Awake. absent: Oriented x3 (confused, ) - Skin Skin Exam: Dry (ecchymotic area near left shoulder and mid chest), Warm Assessment and Plan - Assessment and Plan (Free Text) Assessment: Assessment: status post fall, left shoulder fracture Anemia, differentials to consider hemolysis, elevated retic count, s/p fall, ecchymosis/hematoma History of dementia with Parkinson's History of depression Plan: request for CT scan of abdomen and pelvis with only oral contrast rule out any malignancy Diet as tolerated Continue GI prophylaxis monitor H/H and overt GIB Case discussed with Dr. Helm. Seen and discussed w/ Dr. Spain.
--- NOTE | 2018-01-19 14:45 | CT ---
PROCEDURE: CT Abdomen and Pelvis without intravenous contrast HISTORY: anemia, s/p fall COMPARISON: None. TECHNIQUE: Without contrast.. Contrast Dose: Radiation dose: Total exam DLP = Total exam DLP = 731 mGy-cm. This CT exam was performed using one or more of the following dose reduction techniques: Automated exposure control, adjustment of the mA and/or kV according to patient size, and/or use of iterative reconstruction technique. FINDINGS: LOWER THORAX: Unremarkable. LIVER: Unremarkable. No gross lesion or ductal dilatation. GALLBLADDER AND BILE DUCTS: Unremarkable. PANCREAS: Unremarkable. No gross lesion or ductal dilatation. SPLEEN: Unremarkable. ADRENALS: Unremarkable. No mass. KIDNEYS AND URETERS: Unremarkable. No hydronephrosis. No solid mass. VASCULATURE: Unremarkable. No aortic aneurysm. BOWEL: Unremarkable. No obstruction. No gross mural thickening. APPENDIX: Unremarkable. Normal appendix. PERITONEUM: Unremarkable. No free fluid. No free air. LYMPH NODES: Unremarkable. No enlarged lymph nodes. Multiple clips are seen on both sides of the pelvis and near the aortic bifurcation BLADDER: Unremarkable. REPRODUCTIVE: Hysterectomy BONES: There is disc degeneration a multiple levels. OTHER FINDINGS: None. IMPRESSION: No acute intra-abdominal findings.
[2018-01-19] MEDS: Carbidopa/Levodopa 50/200 CR PO SCH (22:55)
[2018-01-20 09:54] LABS: HEMOGLOBIN 9.5 g/dL (12.0-16.0); MEAN CELL VOLUME 84.3 fl (80.0-105.0); MEAN CORPUSCULAR HEMOGLOBIN 26.6 pg (25.0-35.0); MEAN CORPUSCULAR HGB CONC 31.6 g/dl (31.0-37.0); MEAN PLATELET VOLUME 8.2 fl (7.0-11.0); RBC 3.57 10^6/uL (3.5-6.1); RED CELL DISTRIBUTION WIDTH 15.6 % (11.5-14.5); WHITE BLOOD COUNT 3.8 10^3/ul (4.5-11.0)
[2018-01-20 10:07] LABS: BLOOD UREA NITROGEN 19 mg/dL (7-21); CALCIUM 8.3 mg/dL (8.4-10.5); GFR AFRICAN-AMERICAN > 60; GFR NON-AFRICAN AMERICAN > 60
[2018-01-20] MEDS: ENTACAPONE 200 MG PO SCH ×2 (10:07→17:10)
[2018-01-20] MEDS: Carbidopa/Levodopa 25/100 CR PO SCH ×2 (10:07→17:10)
--- NOTE | 2018-01-20 10:15 | CP.PCM.PN ---
Subjective - Date & Time of Evaluation Date of Evaluation: 01/20/18 Time of Evaluation: 10:15 - Subjective Subjective: DATE: 01/20/2018 NEUROLOGY FOLLOW UP CHIEF COMPLAINT: Falls and Parkinson's disease. Subjective: Patient was in delirium yesterday and overnight. She was given 1 dose of ativan yesterday. REVIEW OF SYSTEMS: Fourteen-point review of systems negative except as per the HPI. ALLERGIES: NO KNOWN DRUG ALLERGIES. PAST MEDICAL HISTORY: History of Parkinson's disease, history of breast surgery, history of depression and anxiety, hysterectomy. SOCIAL HISTORY: No illicit drug use, smoking or EtOH abuse. HOME MEDICATIONS: Reviewed by nurses' reconciliation sheet. PHYSICAL EXAMINATION: VITAL SIGNS: Reviewed GENERAL: The patient is sitting up in bed, in no acute distress. HEENT: Atraumatic, normocephalic. PERRLA. Extraocular muscles intact. NECK: Supple. No JVD. No adenopathy noted. LUNGS: Clear to auscultation. No adventitious sounds. HEART: S1, S2. Normal rate and rhythm. No murmurs, rubs or gallops. ABDOMEN: Soft, nontender and nondistended. Bowel sounds are present. EXTREMITIES: No clubbing. No cyanosis. Peripheral pulses are 2+ felt bilaterally. NEUROLOGIC: The patient is alert and oriented to person and place, not much of year. Recall after 5 minutes is 0/3. Poor attention span and slow thought process. Disorganized thoughts. Cranial nerves II through XII are intact. Motor exam: Moves all extremities equally. Mild subtle resting tremors in both hands on rest. Tone is slightly increased throughout and has mild cognitive rigidity at the wrist bilaterally. Sensory exam: Light touch, pinprick, proprioception and vibration are intact. DTRs are 1+ throughout. Coordination: Eljteo-iu-ibod is intact. Gait is deferred for now. LABORATORY DATA: Reviewed. ASSESSMENT AND PLAN: This is an 87-year-old woman with history of hypertension with history of depression and Parkinson's disease with underlying dementia related to the Parkinson's, who is having multiple falls, which resulted in a fall at home and now fractured her nondisplaced left humeral neck fracture and is very deconditioned. Also, found to have low B12 level and iron-deficiency anemia, which Gastroenterology has been working up. At this time, she sees Dr. Wood, who has her on various medications, a very odd combination of Sinemet CR and Requip and on top of that entacapone, which is her home medication that she takes. She had an episode of delirium with agitation. Plan: At this time, we will recommend, 1. 1000mcg po daily of b12 for b12 deficiency. 2. Continue with her underlying Parkinson's medications that she takes by her Neurologist, Dr. Wood and will adjust them all as an outpatient slowly. 3. Physical therapy/occupational therapy for physical and occupational therapy and could recommend possibly some subacute rehab for underlying deconditioned state. 4.Seroquel 25 mg po qhs for agitation. Delirium precautions. Thank you Nahun Smart MD Objective - Vital Signs/Intake and Output Vital Signs (last 24 hours): Temp Pulse Resp BP Pulse Ox 98.8 F 76 18 135/65 95 01/20/18 00:00 01/20/18 00:00 01/20/18 00:00 01/20/18 00:00 01/20/18 00:00 - Medications Medications: Current Medications Acetaminophen (Tylenol 325mg Tab) 650 mg PO Q6H PRN PRN Reason: Pain, moderate (4-7) Last Admin: 01/19/18 21:34 Dose: 650 mg Carbidopa/Levodopa (Sinemet Cr) 1 tab PO HS [facility] Last Admin: 01/19/18 22:55 Dose: 1 tab Carbidopa/Levodopa (Sinemet Cr) 1 tab PO BID [facility] Last Admin: 01/19/18 17:28 Dose: 1 tab Escitalopram Oxalate (Lexapro) 10 mg PO DAILY [facility] Last Admin: 01/19/18 10:56 Dose: 10 mg Home Med (Home Med) 0 unit PO BID [facility] Last Admin: 01/19/18 19:54 Dose: 1 unit Ropinirole HCl (Requip) 2 mg PO DAILY [facility] Last Admin: 01/19/18 10:56 Dose: 2 mg - Labs Labs: 01/20/18 09:45 01/20/18 09:45 PT 11.4 SECONDS (9.4-12.5) 01/17/18 12:50 INR 0.99 (0.93-1.08) 01/17/18 12:50 APTT 28.6 Seconds (25.1-36.5) 01/17/18 12:50
--- NOTE | 2018-01-20 13:22 | PN ---
DATE: 01/20/2018 SUBJECTIVE: The patient is resting comfortably this morning. Nursing staff relates that there were no particular problems during the night. PHYSICAL EXAMINATION: GENERAL: Patient is alert. VITAL SIGNS: Temperature is 97.4, blood pressure is 149/69, respiratory rate is 18, pulse is 75. LUNGS: Show diminished breath sounds at the bases. HEART: S1, S2 rhythm. ABDOMEN: Soft with positive bowel sounds. EXTREMITIES: No evidence of edema. There is ecchymosis over the left shoulder secondary to the fall that the patient had with a mild displaced fracture of the left humerus. LABORATORY DATA: The patient has a WBC of 4.5, RBC 3.7, hemoglobin 9.8, hematocrit 31.1, platelet count . Her chemistries are normal with the BUN of 22 and creatinine is 0.9. Random blood sugar is 128. ASSESSMENT AND PLAN: The patient is being followed by Neurology for her dementia with Parkinsonian features on Parkinsonian medications. She is being followed by Gastroenterology. She has B12 deficiency and iron deficiency anemia. Gastroenterology has requested a CAT scan of the abdomen and pelvis to be performed. Discussion with family is to proceed with supportive conservative management at this time. We will await CAT scan results and then further discussion with Gastroenterology. Patient is at high risk for fall. 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 We will continue current care at this time. Gifty Helm MD
[2018-01-20] MEDS: Iron Complex Polysacch 150mg Cap PO SCH (14:12)
[2018-01-20 15:55] VITALS: O2SAT 96
--- NOTE | 2018-01-20 16:38 | CP.PCM.PN ---
Subjective - Date & Time of Evaluation Date of Evaluation: 01/20/18 Time of Evaluation: 10:50 - Subjective Subjective: Seen and examined at the bedside earlier today, chart reviewed. Patient status post CT scan yesterday, report reviewed no acute findings. Patient remains confused , was agitated last night given Ativan. Objective - Vital Signs/Intake and Output Vital Signs (last 24 hours): Temp Pulse Resp BP Pulse Ox 99.7 F H 86 20 109/55 L 96 01/20/18 15:54 01/20/18 15:54 01/20/18 15:54 01/20/18 15:54 01/20/18 15:54 Intake and Output: 01/20/18 01/20/18 06:59 18:59 Intake Total 360 Balance 360 - Medications Medications: Current Medications Acetaminophen (Tylenol 325mg Tab) 650 mg PO Q6H PRN PRN Reason: Pain, moderate (4-7) Last Admin: 01/19/18 21:34 Dose: 650 mg Carbidopa/Levodopa (Sinemet Cr) 1 tab PO [facility] Last Admin: 01/19/18 22:55 Dose: 1 tab Carbidopa/Levodopa (Sinemet Cr) 1 tab PO BID [facility] Last Admin: 01/20/18 10:07 Dose: 1 tab Escitalopram Oxalate (Lexapro) 10 mg PO DAILY [facility] Last Admin: 01/20/18 10:07 Dose: 10 mg Home Med (Home Med) 0 unit PO BID [facility] Last Admin: 01/20/18 10:07 Dose: 1 unit Polysaccharide Iron Complex (Ferrex-150) 150 mg PO DAILY [facility] Last Admin: 01/20/18 14:12 Dose: 150 mg Quetiapine Fumarate (Seroquel) 25 mg PO [facility] PRN Reason: Protocol Ropinirole HCl (Requip) 2 mg PO DAILY [facility] Last Admin: 01/20/18 11:14 Dose: 2 mg - Labs Labs: 01/20/18 09:45 01/20/18 09:45 PT 11.4 SECONDS (9.4-12.5) 01/17/18 12:50 INR 0.99 (0.93-1.08) 01/17/18 12:50 APTT 28.6 Seconds (25.1-36.5) 01/17/18 12:50 - Constitutional Appears: No Acute Distress, Confused - Eye Exam Eye Exam: Normal appearance. absent: Scleral icterus - ENT Exam ENT Exam: Mucous Membranes Moist - Neck Exam Neck Exam: Normal Inspection - Respiratory Exam Respiratory Exam: NORMAL BREATHING PATTERN. absent: Respiratory Distress - Cardiovascular Exam Cardiovascular Exam: +S1, +S2 - GI/Abdominal Exam GI & Abdominal Exam: Soft, Normal Bowel Sounds. absent: Guarding, Tenderness, Rebound - Extremities Exam Extremities Exam: absent: Calf Tenderness, Pedal Edema - Neurological Exam Neurological Exam: Altered (confused, history of dementia), Awake - Skin Skin Exam: Dry, Warm Assessment and Plan - Assessment and Plan (Free Text) Assessment: Assessment: Status post fall, left shoulder fracture Anemia, differentials to consider hemolysis, elevated retic count, s/p fall, ecchymosis/hematoma History of dementia with Parkinson's History of depression Plan: Diet as tolerated Continue GI prophylaxis monitor H/H and overt GIB no planned GI interventions at this time, patient DC home on iron supplements. Seen and discussed w/ Dr. Spain.
[2018-01-20] MEDS ORDERED: Potassium Chloride 20 mEq ER Tab PO ONE (19:36)
--- NOTE | 2018-01-20 20:03 | PN ---
DATE: 01/20/2018 SUBJECTIVE: The patient is currently on the fifth floor. PHYSICAL EXAMINATION: VITAL SIGNS: Her temp is 98.8, her blood pressure is 135/65, her oxygen sat is 95% on room air, pulse is 76, respiratory rate is 18. GENERAL: The patient is alert. Her lungs are clear with diminished breath sounds at the bases. HEART: An S1, S2 rhythm. ABDOMEN: Soft with positive bowel sounds. EXTREMITIES: Show no evidence of edema. ASSESSMENT AND PLAN: The patient is being followed by Neurology. She has underlying dementia with parkinsonian features, on Sinemet medication and Seroquel for agitation as well as Requip. She is also on Lexapro for depression and Comtan. She has an iron-deficiency anemia. We will start iron therapy with a plan to follow the patient's labs. The CAT scan of the abdomen and pelvis were normal and she is being followed by Gastroenterology. Family does not wish any intervention at this time. We will follow up the patient's labs and replete her serum potassium. Gifty Helm MD
[2018-01-20] MEDS: Carbidopa/Levodopa 50/200 CR PO SCH (22:03)
[2018-01-21 06:56] LABS: BASO # 0.01 K/mm3 (0.0-2.0); BASO % 0.2 % (0.0-3.0); EOS # 0.1 (0.0-0.7); EOS % 2.6 % (1.5-5.0); GRAN # 3.34 (1.4-6.5); GRAN % 62.8 % (50.0-68.0); HEMOGLOBIN 9.5 g/dL (12.0-16.0); LYMPH # 1.3 (1.2-3.4); LYMPH % 24.6 % (22.0-35.0); MEAN CELL VOLUME 84.9 fl (80.0-105.0); MEAN CORPUSCULAR HEMOGLOBIN 27.1 pg (25.0-35.0); MEAN CORPUSCULAR HGB CONC 31.9 g/dl (31.0-37.0); MEAN PLATELET VOLUME 8.8 fl (7.0-11.0); MONO # 0.5 (0.1-0.6); MONO % 9.8 % (1.0-6.0); RBC 3.51 10^6/uL (3.5-6.1); RED CELL DISTRIBUTION WIDTH 15.9 % (11.5-14.5); WHITE BLOOD COUNT 5.3 10^3/ul (4.5-11.0)
[2018-01-21 06:58] LABS: BLOOD UREA NITROGEN 19 mg/dL (7-21); CALCIUM 8.8 mg/dL (8.4-10.5); GFR AFRICAN-AMERICAN > 60; GFR NON-AFRICAN AMERICAN > 60
[2018-01-21 07:49] VITALS: BP 114/57; PULSE 79; RESP 18; TEMP 98.1
[2018-01-21] MEDS ORDERED: Potassium Chloride 20 mEq ER Tab PO SCH (08:45)
[2018-01-21] MEDS: Carbidopa/Levodopa 25/100 CR PO SCH (09:36)
[2018-01-21] MEDS: Iron Complex Polysacch 150mg Cap PO SCH (09:36)
[2018-01-21] MEDS: ENTACAPONE 200 MG PO SCH (09:36)
[2018-01-21] MEDS ORDERED: POLYETHYLENE GLYCOL 3350 17 GM/Dose PACKET PO ONE (10:53)
[2018-01-21] MEDS ORDERED: Potassium Chloride 20 mEq ER Tab PO ONE (14:03)
--- NOTE | 2018-01-21 14:25 | CP.PCM.PN ---
Subjective - Date & Time of Evaluation Date of Evaluation: 01/21/18 Time of Evaluation: 10:20 - Subjective Subjective: Seen and examined at the bedside earlier today. Patient confused but awake and alert. No known recent BM noted. Although patient is requesting for bedpan to urinate and have a BM. No acute overnight events reported. Objective - Vital Signs/Intake and Output Vital Signs (last 24 hours): Temp Pulse Resp BP Pulse Ox 98.1 F 79 18 114/57 L 96 01/21/18 07:00 01/21/18 07:00 01/21/18 07:00 01/21/18 07:00 01/21/18 07:00 Intake and Output: 01/21/18 01/21/18 06:59 18:59 Intake Total 240 360 Balance 240 360 - Medications Medications: Current Medications Acetaminophen (Tylenol 325mg Tab) 650 mg PO Q6H PRN PRN Reason: Pain, moderate (4-7) Last Admin: 01/21/18 02:31 Dose: 650 mg Carbidopa/Levodopa (Sinemet Cr) 1 tab PO HS [facility] Last Admin: 01/20/18 22:03 Dose: 1 tab Carbidopa/Levodopa (Sinemet Cr) 1 tab PO BID [facility] Last Admin: 01/21/18 09:36 Dose: 1 tab Docusate Sodium (Colace) 100 mg PO BID [facility] Last Admin: 01/21/18 12:32 Dose: 100 mg Escitalopram Oxalate (Lexapro) 10 mg PO DAILY [facility] Last Admin: 01/21/18 09:37 Dose: 10 mg Home Med (Home Med) 0 unit PO BID [facility] Last Admin: 01/21/18 09:36 Dose: 1 unit Polysaccharide Iron Complex (Ferrex-150) 150 mg PO DAILY [facility] Last Admin: 01/21/18 09:36 Dose: 150 mg Potassium Chloride (K-Dur 20 Meq Er Tab) 20 meq PO BRK [facility] Last Admin: 01/21/18 09:36 Dose: 20 meq Quetiapine Fumarate (Seroquel) 25 mg PO HS [facility] PRN Reason: Protocol Last Admin: 01/20/18 22:03 Dose: 25 mg Ropinirole HCl (Requip) 2 mg PO DAILY [facility] Last Admin: 01/21/18 12:25 Dose: 2 mg - Labs Labs: 01/21/18 06:15 01/21/18 06:15 PT 11.4 SECONDS (9.4-12.5) 01/17/18 12:50 INR 0.99 (0.93-1.08) 01/17/18 12:50 APTT 28.6 Seconds (25.1-36.5) 01/17/18 12:50 - Constitutional Appears: No Acute Distress - Head Exam Head Exam: NORMOCEPHALIC - Eye Exam Eye Exam: Normal appearance. absent: Scleral icterus - ENT Exam ENT Exam: Mucous Membranes Moist - Neck Exam Neck Exam: Normal Inspection - Respiratory Exam Respiratory Exam: NORMAL BREATHING PATTERN. absent: Respiratory Distress - Cardiovascular Exam Cardiovascular Exam: +S1, +S2 - GI/Abdominal Exam GI & Abdominal Exam: Soft, Normal Bowel Sounds. absent: Guarding, Tenderness, Rebound - Extremities Exam Extremities Exam: absent: Calf Tenderness - Neurological Exam Neurological Exam: Alert, Altered (confused), Awake - Skin Skin Exam: Dry, Warm Assessment and Plan - Assessment and Plan (Free Text) Assessment: Assessment: Status post fall, left shoulder fracture Anemia, differentials to consider hemolysis, elevated retic count, s/p fall, ecchymosis/hematoma History of dementia with Parkinson's History of depression Plan: Diet as tolerated On iron supplements Will start on Colace twice a day, if no BM give MiraLAX Continue GI prophylaxis monitor H/H and overt GIB no planned GI interventions at this time, plan to be discharged to [facility]. Discussed with Dr. Helm. Seen and discussed w/ Dr. Spain.
--- NOTE | 2018-01-21 15:29 | CON ---
DATE: 01/21/2018 REASON FOR CONSULTATION: Hypokalemia. HISTORY OF PRESENT ILLNESS: An 87-year-old lady previously unknown to me, was brought to the emergency room on 01/17/2018 after she fell at home. As per the PMD's note, the patient has a history of multiple falls at home. She sustained some trauma to her left shoulder and was found to have a large ecchymotic area at the time of presentation. She was also found to have low potassium. At the time of admission, her potassium was 3.9, subsequently dropped to 3.3. Today's potassium is 3.4. Consultation is requested for hypokalemia. PAST MEDICAL AND SURGICAL HISTORY: Rectal bleeding, dementia, Parkinson disease, and depression. FAMILY HISTORY: Noncontributory. SOCIAL HISTORY: No smoking, no alcohol use, no IV drug abuse. ALLERGIES: NO KNOWN DRUG ALLERGIES. MEDICATIONS AT HOME: Had been carbidopa, Requip, Lexapro, and Comtan. REVIEW OF SYSTEMS: Currently, the patient denies any pain. She denies any shortness of breath. She denies any chest tightness. She denies any nausea, vomiting, or diarrhea. All other systems are reviewed and are unremarkable. PHYSICAL EXAMINATION: GENERAL: Elderly lady sitting in chair. VITAL SIGNS: Blood pressure 114/57, heart rate 80, respiratory rate 18, temperature 98.1. HEENT: Normocephalic, atraumatic. NECK: Supple, no JVD. LUNGS: Bilateral equal air entry, bilateral equal expansion. CARDIAC: S1 and S1, regular rate and rhythm, no murmur, no rub. ABDOMEN: Soft, nondistended, nontender, bowel sounds present. EXTREMITIES: No lower extremity edema. INTAKE AND OUTPUT: Not charted. LABORATORY DATA: WBC 5, hemoglobin 9.5, hematocrit 30, platelets 285. Sodium 146, potassium 3.4, chloride 108, CO2 of 29, BUN 19, creatinine 0.8, glucose 121, calcium 8.8. Cultures, no growth. CURRENT MEDICATIONS: Colace, iron 150, K-Dur 20 mEq given this morning, Lexapro, Requip, Seroquel, carbidopa, Tylenol, and MiraLax. ASSESSMENT: 1. Hypokalemia, perhaps depletional, related to poor p.o. intake. This is the most likely cause since the patient is also hypernatremic and alkalemic. This probably is all related to contraction alkalosis. 2. Hypernatremia. 3. Alkalosis. 4. History of Parkinson's. 5. Chronic anemia. PLAN: 1. Replace potassium, give 20 mEq dose extra now. 2. Push p.o. fluids. 3. High potassium diet. 4. Monitor labs as outpatient. Kristin Bejarano MD
== END 2018-01-21 17:23 | DRG 563 ==
LOC: ED 11:17 → ERH 16:21 → 2RSO 18:26 → 5RNO 01-19 14:11
PROVIDERS: ADMIT Internal Medicine; ATTEND Internal Medicine
DX: S42.215A Unspecified nondisplaced fracture of surgical neck of left humerus, initial encounter for closed fracture (principal); E87.0 Hyperosmolality and hypernatremia; G31.83 Neurocognitive disorder with Lewy bodies; F02.80 Dementia in other diseases classified elsewhere, unspecified severity, without behavioral disturbance, psychotic disturbance, mood disturbance, and anxiety; R29.6 Repeated falls; F41.9 Anxiety disorder, unspecified; D50.9 Iron deficiency anemia, unspecified; I10 Essential (primary) hypertension; E87.6 Hypokalemia; F32.9 Major depressive disorder, single episode, unspecified; E53.8 Deficiency of other specified B group vitamins; Z91.81 History of falling; W01.0XXA Fall on same level from slipping, tripping and stumbling without subsequent striking against object, initial encounter; Y92.009 Unspecified place in unspecified non-institutional (private) residence as the place of occurrence of the external cause; Z85.3 Personal history of malignant neoplasm of breast; Z85.43 Personal history of malignant neoplasm of ovary; Z90.13 Acquired absence of bilateral breasts and nipples; Z90.710 Acquired absence of both cervix and uterus; Z87.891 Personal history of nicotine dependence

== ENCOUNTER 2018-05-20 15:02 | Emergency (ER) | payer MEDICARE ==
[2018-05-20 15:11] VITALS: BMI 24.8
[2018-05-20 15:20] VITALS: TEMP 98.4
--- NOTE | 2018-05-20 15:51 | ED PDOC ---
Arrival/HPI - General Chief Complaint: Trauma Time Seen by Provider: 05/20/18 15:23 Historian: Patient, Family - History of Present Illness Narrative History of Present Illness (Text): 05/20/18 15:38 A 87 year old female, whose past medical history includes Parkinson's disease ( with cognitive function), and breast and ovarian CA (bilateral mastectomy), who is accompanied by family, is brought in by EMS to the emergency department complaining of right shoulder/hip pain s/p fall yesterday at home. Patient is known to have a history of falls due to Parkinson's. Per niece, patient is also unable to move left arm since falling 3 months ago. At the time, patient had fallen on the left side, resulting in coming to the ER for evaluation of left shoulder pain. Patient was sent to [facility] re[facility] afterwards. Patient denies any head trauma, LOC, or any other complaints at this time. PMD: Dr. Gifty Helm Time/Duration: 24 hours Past Medical History - Provider Review Nursing Documentation Reviewed: Yes - Cardiac Hx Cardiac Disorders: No - Pulmonary Hx Respiratory Disorders: Yes (used to smoke cigarettes quit.) - Neurological Hx Neurological Disorder: Yes Hx Parkinson's Disease: Yes - HEENT Hx HEENT Disorder: Yes (had oral sx) - Renal Hx Renal Disorder: No - Endocrine/Metabolic Hx Endocrine Disorders: No - Hematological/Oncological Hx Blood Disorders: Yes Hx Cancer: Yes (breast/ovarian ca.) - Integumentary Hx Dermatological Disorder: No - Musculoskeletal/Rheumatological Hx Musculoskeletal Disorders: No Hx Falls: Yes (3 x this week.) - Gastrointestinal Hx Gastrointestinal Disorders: No - Genitourinary/Gynecological Hx Genitourinary Disorders: Yes Other/Comment: Breast CA. "oral" CA - Psychiatric Hx Psychophysiologic Disorder: No Hx Depression: No Hx Emotional Abuse: No Hx Physical Abuse: No Hx Substance Use: No - Surgical History Hx Mastectomy: Yes (BILAT) - Anesthesia Hx Anesthesia: Yes Hx Anesthesia Reactions: No Hx Malignant Hyperthermia: No - Suicidal Assessment Feels Threatened In Home Enviroment: No Family/Social History - Physician Review Nursing Documentation Reviewed: Yes Family/Social History: No Known Family HX Smoking Status: Former Smoker Hx Alcohol Use: No Hx Substance Use: No Allergies/Home Meds Allergies/Adverse Reactions: Allergies No Known Allergies Allergy (Verified 05/20/18 15:08) Home Medications: Home Meds Medication Instructions Recorded Confirmed Entacapone [Comtan] 1 tab PO BID 01/17/18 05/20/18 Escitalopram [Lexapro] 10 mg PO DAILY 01/17/18 05/20/18 Review of Systems - Physician Review All systems were reviewed & negative as marked: Yes - Review of Systems Constitutional: absent: Other (no head trauma/LOC) Musculoskeletal: Other (right shoulder/hip pain) Physical Exam - Physical Exam Narrative Physical Exam (Text): Gen: VS reviewed, alert, well developed, well nourished, nontoxic, mild distress. ENT: normal pharynx. Eye: EOMI, PERRL. Neck: no JVD, supple, no adenopathy. CV: regular rate, regular rhythm, no rubs, no murmur, no gallops, S1, S2, pulses equal and strong. Pulm: no distress, clear to auscultation, no wheeze, no rhonchi, breath sounds equal, no rales. Abd: soft, nontender, no guarding, no rebound, no rigidity, normal bowel sounds. Ext: no edema, moderate swelling to right shoulder, no soft tissue bruising, limited ROM secondary to pain, mild tenderness over right proixmal forearm, no deformity/bruising, questionable bilateral hip tenderness. Skin: good color, no rash, no cyanosis. Psych: responds appropriately to questions, normal affect. Neuro: oriented x 3, CN2-12 intact grossly, motor intact, sensation intact. Vital Signs Reviewed: Yes Vital Signs Temp Pulse Resp BP Pulse Ox 05/20/18 15:15 98.4 F 78 17 139/89 99 Temperature: Afebrile Blood Pressure: Normal Pulse: Regular Respiratory Rate: Normal Appearance: Positive for: Well-Appearing, Non-Toxic, Comfortable Pain Distress: None Mental Status: Positive for: Alert and Oriented X 3 Medical Decision Making ED Course and Treatment: 05/20/18 15:42 Impression: 87 year old female with right shoulder/hip pain s/p fall. Physical exam shows moderate swelling to right shoulder, no soft tissue bruising, limited ROM secondary to pain, mild tenderness over right proximal forearm, no deformity /bruising, questionable bilateral hip tenderness; no other acute findings on examination. Plan: -- EKG -- Head CT -- Chest X-ray -- Right Forearm X-Ray -- Bilateral Hip X-Ray -- Right Humerus X-ray -- Pelvis X-ray -- Right Shoulder X-Ray -- Urinalysis -- Labs -- Urine Culture -- Reassess and disposition Prior Visits: Notes and results from previous visits were reviewed. Patient was last seen in the emergency department on 01/17/2018 for left shoulder pain, left humerus pain , and bruising to sternal area s/p fall x 3. Patient was admitted to telemetry. Progress Notes: 05/20/2018 16:54 Chest X-ray IMPRESSION: Deformity of the left humeral head; correlate clinically to exclude possibility of acute fracture. Sclerosis involving bilateral humeral heads. Chronic appearing prominent interstitial markings. Cardiomegaly. Dictator: Awilda Mullen MD 05/20/2018 16:55 Hip/Pelvis X-ray IMPRESSION: Diffuse osteopenia. No demonstrated fracture or dislocation. Degenerative changes. Dictator: Amilcar Mitchell MD 05/20/2018 16:57 Right Shoulder X-Ray IMPRESSION: Chronic inferior subluxation with nonspecific sclerosis comment no significant interval change. Dictator: Amilcar Mitchell MD 05/20/2018 16:[address] IMPRESSION: No acute intracranial pathology. Age-related changes. No significant interval change. Dictator: Amilcar Mitchell MD 05/20/18 19:15 despite multiple falls, hx of parkinsons and dementia, the family at bedside would like to take the patient home. the patient does have home health aid and family members at home for everyday care assistance. the patient does appear to have the mental faculties to state she does not want to stay in the hospital and appears to understand the current clinical implications. ultimately, the family at bedside will assume care of the patient. admission was offered for frequent falls, fall risk and potential placement. - Lab Interpretations Lab Results: 05/20/18 16:02 05/20/18 16:02 Lab Results 05/20/18 16:02: Sodium 143, Potassium 3.8, Chloride 106, Carbon Dioxide 25, Anion Gap 15, BUN 18, Creatinine 0.7, Est GFR ( Amer) > 60, Est GFR (Non- Af Amer) > 60, Random Glucose 87, Calcium 9.1 05/20/18 16:02: WBC 4.7, RBC 4.41, Hgb 11.7 L D, Hct 35.1 L, MCV 79.6 L D, MCH 26.5, MCHC 33.3, RDW 15.5 H, Plt Count 184, MPV 9.1, Gran % 52.6, Lymph % (Auto ) 34.5, [place] % (Auto) 10.4 H, Eos % (Auto) 2.1, Baso % (Auto) 0.4, Gran # 2.47, Lymph # (Auto) 1.6, [place] # (Auto) 0.5, Eos # (Auto) 0.1, Baso # (Auto) 0.02 I have reviewed the lab results: Yes - RAD Interpretation Radiology Orders: 05/20/18 15:36 SHOULDER RIGHT [RAD] Stat 05/20/18 15:37 HUMERUS RT FALL PROTOCOL [RAD] Stat 05/20/18 15:42 HEAD W/O CONTRAST [CT] Stat 05/20/18 15:45 Hip Bi with Pelvis Fall Protocol [HIP MIN 2V W/ PELVIS TASIA] [RAD] Stat 05/20/18 15:46 FOREARM RT FALL PROTOCOL [RAD] Stat 05/20/18 15:47 CXR [CHEST ONE VIEW] [RAD] Stat - EKG Interpretation EKG Interpretation (Text): 05/20/18 16:15 1514: nsr at 75 bpm, nml qrs, nml axis, no acute sttw abn Interpreted by ED Physician: Yes - Scribe Statement The provider has reviewed the documentation as recorded by the Sharron Pierre Provider Scribe Attestation: All medical record entries made by the Tyrelibsisi were at my direction and personally dictated by me. I have reviewed the chart and agree that the record accurately reflects my personal performance of the history, physical exam, medical decision making, and the department course for this patient. I have also personally directed, reviewed, and agree with the discharge instructions and disposition. Disposition/Present on Arrival - Present on Arrival Any Indicators Present on Arrival: No History of DVT/PE: No History of Uncontrolled Diabetes: No Urinary Catheter: No History of Decub. Ulcer: No History Surgical Site Infection Following: None - Disposition Have Diagnosis and Disposition been Completed?: Yes Diagnosis: Falls frequently, Shoulder contusion, Subluxation of right shoulder girdle Disposition: HOME/ ROUTINE Disposition Time: 19:18 Patient Plan: Discharge Patient Problems: Current Active Problems Problem Status Onset Falls frequently Acute Shoulder contusion Acute Subluxation of right shoulder girdle Acute Condition: STABLE Print Language: CENTRAL AFRICAN Additional Instructions: Follow up with an orthopedic surgeon as soon as possible. Return for any problems or concerns. Follow up with your primary care doctor to have a urine checked to rule out urine infection. JOSE LOMBARDO, thank you for letting us take care of you today. Your provider was Yunior Brooks MD and you were treated for R SHOULDER PAIN. The emergency medical care you received today was directed at your acute symptoms. If you were prescribed any medication, please fill it and take as directed. It may take several days for your symptoms to resolve. Return to the Emergency Department if your symptoms worsen, do not improve, or if you have any other problems. Please contact your doctor or call one of the physicians/clinics you have been referred to that are listed on the Patient Visit Information form that is included in your discharge packet. Bring any paperwork you were given at discharge with you along with any medications you are taking to your follow up visit. Our treatment cannot replace ongoing medical care by a primary care provider outside of the emergency department. Thank you for allowing the [facility] team to be part of your care today. If you had an X-Ray or CT scan: A Radiologist will review the ED reading if any change in treatment is needed we will contact you. If you had a blood, urine, or wound culture: It will take several days for the results, if any change in treatment is needed we will contact you. If you had an STI test: It will take 48 hours for the results. Please call after 1 week if you have not heard back. Referrals: Gifty Helm MD [Primary Care Provider] - Follow up with primary June Ledbetter MD [Staff Provider] - Follow up with primary Forms: [employer] (Bulgarian)
[2018-05-20 16:16] LABS: BASO # 0.02 K/mm3 (0.0-2.0); BASO % 0.4 % (0.0-3.0); EOS # 0.1 (0.0-0.7); EOS % 2.1 % (1.5-5.0); GRAN # 2.47 (1.4-6.5); GRAN % 52.6 % (50.0-68.0); HEMOGLOBIN 11.7 g/dL (12.0-16.0); LYMPH # 1.6 (1.2-3.4); LYMPH % 34.5 % (22.0-35.0); MEAN CELL VOLUME 79.6 fl (80.0-105.0); MEAN CORPUSCULAR HEMOGLOBIN 26.5 pg (25.0-35.0); MEAN CORPUSCULAR HGB CONC 33.3 g/dl (31.0-37.0); MEAN PLATELET VOLUME 9.1 fl (7.0-11.0); MONO # 0.5 (0.1-0.6); MONO % 10.4 % (1.0-6.0); RBC 4.41 10^6/uL (3.5-6.1); RED CELL DISTRIBUTION WIDTH 15.5 % (11.5-14.5); WHITE BLOOD COUNT 4.7 10^3/ul (4.5-11.0)
[2018-05-20 16:26] LABS: BLOOD UREA NITROGEN 18 mg/dL (7-21); CALCIUM 9.1 mg/dL (8.4-10.5); GFR NON-AFRICAN AMERICAN > 60
--- NOTE | 2018-05-20 16:56 | RAD ---
HISTORY: fall COMPARISON: Chest x-ray performed 01/26/13 TECHNIQUE: Chest, one view. FINDINGS: LUNGS: Chronic appearing prominent interstitial markings. Please note that chest x-ray has limited sensitivity for the detection of pulmonary masses. PLEURA: No significant pleural effusion identified. No definite pneumothorax . CARDIOVASCULAR: Cardiomegaly. OSSEOUS STRUCTURES: Degenerative changes. Sclerosis involving bilateral humeral heads. Deformity of the left humeral head; correlate clinically to exclude possibility of acute fracture. VISUALIZED UPPER ABDOMEN: Unremarkable. OTHER FINDINGS: Bilateral axillary clips. IMPRESSION: Deformity of the left humeral head; correlate clinically to exclude possibility of acute fracture. Sclerosis involving bilateral humeral heads. Chronic appearing prominent interstitial markings. Cardiomegaly.
--- NOTE | 2018-05-20 16:57 | RAD ---
PROCEDURE: Radiographs of the pelvis and bilateral hips HISTORY: fall, injury COMPARISON: CT scan of the abdomen pelvis dated 01/19/2018. FINDINGS: BONES: Pelvis: Unremarkable. Right hip:Unremarkable. Left hip:Unremarkable. JOINTS: Right hip: Joint space narrowing. Left hip: Joint space narrowing. Sacroiliac Joints: Joint space narrowing. Pubic symphysis: Joint space narrowing. SOFT TISSUES: Normal. OTHER FINDINGS: Right lower quadrant and pelvic surgical clips. IMPRESSION: Diffuse osteopenia. No demonstrated fracture or dislocation. Degenerative changes.
--- NOTE | 2018-05-20 16:59 | RAD ---
Date of service: 05/20/2018 PROCEDURE: Radiographs of the Right Shoulder HISTORY: fall, injury COMPARISON: Chest radiograph dated 01/26/2013. FINDINGS: BONES: No acute fracture. Nonspecific sclerosis of the humeral head, unchanged JOINTS: Chronic inferior subluxation of the humeral head. SOFT TISSUES: Normal. OTHER FINDINGS: None. IMPRESSION: Chronic inferior subluxation with nonspecific sclerosis comment no significant interval change.
--- NOTE | 2018-05-20 17:00 | CT ---
Date of service: 05/20/2018 PROCEDURE: CT HEAD WITHOUT CONTRAST. HISTORY: trauma COMPARISON: CT head dated 01/17/2018 TECHNIQUE: Axial computed tomography images were obtained through the head/brain without intravenous contrast. Radiation dose: Total exam DLP = 1655.2 mGy-cm. This CT exam was performed using one or more of the following dose reduction techniques: Automated exposure control, adjustment of the mA and/or kV according to patient size, and/or use of iterative reconstruction technique. FINDINGS: HEMORRHAGE: No intracranial hemorrhage. BRAIN: No mass effect or edema. Atrophy. Chronic microvascular ischemic changes. VENTRICLES: Unremarkable. No hydrocephalus. CALVARIUM: Unremarkable. PARANASAL SINUSES: Unremarkable as visualized. No significant inflammatory changes. MASTOID AIR CELLS: Unremarkable as visualized. No inflammatory changes. OTHER FINDINGS: None. IMPRESSION: No acute intracranial pathology. Age-related changes. No significant interval change.
[2018-05-20 19:38] VITALS: BP 137/82; PULSE 85; RESP 18; O2SAT 100
--- NOTE | 2018-05-21 05:10 | CARD ---
APPROVED REPORT Date of service: 05/20/2018 EKG Measurement Heart [id number] <Conclusion> Normal sinus rhythm Inferior infarct, age undetermined Abnormal ECG
--- NOTE | 2018-05-21 09:07 | RAD ---
PROCEDURE: Radiographs of the right humerus. HISTORY: fall, injury COMPARISON: None available. FINDINGS: BONES: Osseous demineralization. No acute displaced fracture or dislocation. Degenerative changes. SOFT TISSUES: Soft tissue swelling. No evidence of radiopaque foreign body. OTHER FINDINGS: None. IMPRESSION: Soft tissue swelling. Osseous demineralization. No acute displaced fracture appreciated. Degenerative changes.
--- NOTE | 2018-05-21 09:10 | RAD ---
PROCEDURE: Radiographs of the right forearm. HISTORY: fall, injury COMPARISON: None available. TECHNIQUE: Frontal and lateral views obtained. FINDINGS: BONES: Osseous demineralization. Degenerative changes. No acute displaced fracture. JOINT SPACES: No dislocation. OTHER FINDINGS: No evidence of radiopaque foreign body. IMPRESSION: Osseous demineralization. Degenerative changes. If symptoms persist or if there is continued clinical concern, x-ray follow-up in 7-10 days should be considered.
== END 2018-05-20 19:30 | disposition home or self-care (01) ==
LOC: ED 15:02
DX: S40.011A Contusion of right shoulder, initial encounter (principal); S43.301A Subluxation of unspecified parts of right shoulder girdle, initial encounter; W19.XXXA Unspecified fall, initial encounter; Y92.009 Unspecified place in unspecified non-institutional (private) residence as the place of occurrence of the external cause; R29.6 Repeated falls; G20 Parkinson's disease; Z87.891 Personal history of nicotine dependence